=== PATIENT | female | born 1965 | race Caucasian/White ===

== ENCOUNTER 2019-05-08 08:30 | Day surgery (SDC) | payer BC ==
[~2019-05-08] VITALS: Ht 172.7 cm; Wt 93.0 kg
[~2019-05-08 08:30] MED LIST: ALEVE220 MG PO; ALPRAZOLAM ER2 MG PO; BUPROPION XL300 MG PO; LISINOPRIL20 MG PO; MEDROXYPROGESTE10 MG PO; PERCOCET 7.5-31 EACH PO; PRILOSEC20 MG PO; WELLBUTRIN SR100 MG PO
--- NOTE | 2019-05-08 10:43 | NUR ---
05/08/19 Ruben3 Jerri Mathews [id number] ARRIVED TO PACU ON RA. REACTIVE TO VOICE OPENING EYES. LAYING LEFT LATERAL ABDOMEN SOFT. 1043-PATIENT COUGHING AWAKE DENIES PAIN OR NAUSEA. REPORTS "JUST IRRITATING COUGH". SR. RR EVEN. RA 96%
--- NOTE | 2019-05-10 16:41 | OR ---
[facility] [address], [place] [address] Signed DATE OF OPERATION: 05/08/2019 SURGEON: Malka Tyson MD PREOPERATIVE DIAGNOSIS: History of Sharma's esophagus. POSTOPERATIVE DIAGNOSES: 1. Ultra short-segment Sharma's esophagus. 2. Mild chronic inflammation. 3. Poor flap valve. PROCEDURE: Esophagogastroduodenoscopy with biopsy. ANESTHESIA: Intravenous sedation, propofol infusion, Ramona Bateman CRNA INDICATION: Propofol infusional sedation by the anesthesiologist and critical care in the lateral decubitus position. DESCRIPTION OF PROCEDURE: The hypopharynx had been sprayed with Hurricaine spray by the anesthesiologist and critical care. A bite block was placed. An Olympus video upper endoscope was passed in the hypopharynx. The vocal cords appeared normal. Scope was advanced down the esophagus. The distal portion showed minimal inflammatory changes, certainly no sign of neoplasm or stricture. The previously noted islands consistent with Sharma epithelium were nearly closed or coalescent. Scope was advanced to the stomach, which was insufflated with air. There was no sign of bile within the stomach. Rugal folds appeared normal as did the antral motility. The pylorus was normal. Scope was passed through into the duodenum, which was normal. Biopsies were taken of the duodenal mucosa nevertheless to assess for celiac disease. The scope was withdrawn and biopsies then taken of the antrum for both ULISES and pathologic testing. Retroflexed view was undertaken showing a very poor flap valve and an effaced GE junction. Scope was withdrawn to the distal esophagus where multiple biopsies were taken of the esophageal mucosa including areas considered possible for short-segment Sharma's epithelium. There is certainly no stricture or neoplasm. No varices. Scope was withdrawn and a corrugated appearance of the mid esophagus was noted. Biopsies were obtained there. Scope was further withdrawn and ultimately removed. The patient was taken to recovery room in good condition having suffered no complication. Electronically Signed By: MALKA TYSON MD 05/10/19 1641 PATIENT NAME: ISAAC DIAL OPERATIVE REPORT DATE OF : 67 REPORT #: [id number] PHYSICIAN: MALKA TYSON MD PCP: LIZ WOOTEN PA-C REPORT IS CONFIDENTIAL AND NOT TO BE RELEASED WITHOUT AUTHORIZATION [facility] [address], [place] [address] Signed CONCLUDING DIAGNOSIS: 1. Clinical improvement (endoscopic appearance) of probable distal esophageal Sharma's epithelium. If anything, Short-segment Sharma's only. No sign of progression or neoplasm. 2. Poor flap valve. 3. Mild antral gastritis. PLAN: We will recommend continued use of lansoprazole 30 mg daily. We will review her pathology reports and make a plan for surveillance depending on those findings. She will return to see us in approximately 4 to 6 weeks. MD CASSIE Almeida/YARELI /[id number] cc: Liz Wooten PA-C Copies: LIZ WOOTEN PA-C ~ Electronically Signed By: MALKA TYSON MD 05/10/19 1641 PATIENT NAME: ISAAC DIAL OPERATIVE REPORT DATE OF : 67 REPORT #: [id number] PHYSICIAN: MALKA TYSON MD PCP: LIZ WOOTEN PA-C REPORT IS CONFIDENTIAL AND NOT TO BE RELEASED WITHOUT AUTHORIZATION
--- NOTE | 2019-05-12 17:31 | PATH ---
[facility] [address], [place] [address] Signed SPECIMEN(S): A DUODENAL BIOPSY SPECIMEN(S): B ANTRUM/PYLORUS BIOPSY SPECIMEN(S): C LOWER ESOPHAGEAL BIOPSY SPECIMEN(S): D MID ESOPHAGEAL BIOPSY SPECIMEN SOURCE: A. DUODENAL BIOPSY B. ANTRUM/PYLORUS BIOPSY C. LOWER ESOPHAGEAL BIOPSY D. MID ESOPHAGEAL BIOPSY CLINICAL HISTORY: Pre: Sharma's esophagus, reflux. Post: Distal esophagitis. MICROSCOPIC DESCRIPTION: Histologic sections of all submitted blocks are examined by light microscopy. These findings, together with the gross examination, support the pathologic diagnosis. FINAL PATHOLOGIC DIAGNOSIS: A. Duodenum, biopsy: - Duodenal mucosa with no histopathologic abnormality. - Normal villous architecture is present. B. Stomach, antrum/pylorus, biopsy: - Antral type mucosa with mild chronic, inactive gastritis. - No Helicobacter organisms seen on immunohistochemical stain. C. Esophagus, lower, biopsy: - Squamocolumnar junctional mucosa with mild reactive epithelial changes. D. Esophagus, mid, biopsy: - Squamous mucosa with mild reactive epithelial changes. - No dysplasia or malignancy. COMMENT: An immunohistochemical stain (with appropriate controls) for Helicobacter pylori was performed on the antrum/pyloris biopsy and shows no Helicobacter organisms. NAL:cml:C2NR GROSS DESCRIPTION: Four specimens are received in four containers, labeled "KW." A. The specimen, labeled "KW, duodenal biopsy," is received in formalin and consists of a single 0.3 cm palmer-brown fragment. Specimen is entirely submitted PATIENT NAME: ISAAC DIAL PATHOLOGY DATE OF : 67 REPORT #: [id number] PHYSICIAN: FABI NAIR PCP: EVELIN CROCKETT PA-C REPORT IS CONFIDENTIAL AND NOT TO BE RELEASED WITHOUT AUTHORIZATION [facility] [address], [place] [address] Signed in cassette (A1). B. The specimen, labeled "KW, antrum biopsy," is received in formalin and consists of two, 0.2 and 0.3 cm palmer fragments. Specimen is entirely submitted in cassette (B1). C. The specimen, labeled "KW, lower esophageal biopsy," is received in formalin and consists of four, 0.1-0.4 cm palmer-white fragments. Specimen is entirely submitted in cassette (C1). D. The specimen, labeled "KW, mid-esophageal biopsy," is received in formalin and consists of a single 0.2 cm palmer-white fragment. Specimen is entirely submitted in cassette (D1). AM (under the direct supervision of a pathologist) The Gross Description was prepared using a voice recognition system. The report was reviewed for accuracy; however, sound-alike word errors, addition and/or deletions may occur. If there is any question about this report, please contact Client Services. ADDITIONAL NOTES: Immunohistochemical and/or in situ hybridization studies were performed on this case with the appropriate positive controls that react as expected. This test was developed and its performance characteristics determined by [employer]. It has not been cleared or approved by the U.S. Food and Drug Administration. The FDA has determined that such clearance or approval is not necessary. This test is used for clinical purposes. It should not be regarded as investigational or for research. [facility] [facility] is certified under the Clinical Laboratory Improvement Amendments of 1988 (CLIA) as qualified to perform high complexity clinical laboratory testing. PERFORMING LABORATORY: The technical component was performed by [facility], [address] [place] [id number] (Fitness Teacher: Heidy Red MD; CLIA# [id number]). Professional interpretation was performed by [employer], [facility], [address] [address] (CLIA# [id number]). Diagnostician: Meena Garcia MD Pathologist Electronically Signed 05/12/2019 PATIENT NAME: ISAAC DIALISE PATHOLOGY DATE OF : 67 REPORT #: [id number] PHYSICIAN: FABI PATHOLOGY PCP: EVELIN CROCKETT PA-C REPORT IS CONFIDENTIAL AND NOT TO BE RELEASED WITHOUT AUTHORIZATION [facility] [address] [place], [place] [address] Signed Copies: ~ PATIENT NAME: ISAAC DIAL JUSTINE PATHOLOGY DATE OF : 67 REPORT #: [id number] PHYSICIAN: FABI NAIR PCP: EVELIN CROCKETT PA-C REPORT IS CONFIDENTIAL AND NOT TO BE RELEASED WITHOUT AUTHORIZATION
== END 2019-05-08 11:25 | disposition home or self-care (01) ==
LOC: DS 08:30 → OPS 08:30 → DS 11:00 → OPS 11:00
PROVIDERS: Surgery
PROC: 0DB78ZX Excision of Stomach, Pylorus, Via Natural or Artificial Opening Endoscopic, Diagnostic (ICD-10-PCS; 2019-05-08)
PROC: 0DB28ZX Excision of Middle Esophagus, Via Natural or Artificial Opening Endoscopic, Diagnostic (ICD-10-PCS; 2019-05-08)
PROC: 0DB38ZX Excision of Lower Esophagus, Via Natural or Artificial Opening Endoscopic, Diagnostic (ICD-10-PCS; 2019-05-08)
PROC: 0DB98ZX Excision of Duodenum, Via Natural or Artificial Opening Endoscopic, Diagnostic (ICD-10-PCS; principal; 2019-05-08 11:00)
DX: K22.70 Barrett's esophagus without dysplasia (principal); K29.50 Unspecified chronic gastritis without bleeding; K21.9 Gastro-esophageal reflux disease without esophagitis; I10 Essential (primary) hypertension; Z88.5 Allergy status to narcotic agent; Z79.899 Other long term (current) drug therapy; Z87.891 Personal history of nicotine dependence; Z98.890 Other specified postprocedural states
CPT/HCPCS: J0690; J2250; J2704; J7120

== ENCOUNTER 2021-12-23 17:45 | Emergency (ER) | payer OTHER, BC ==
[~2021-12-23] VITALS: Ht 172.7 cm; Wt 98.7 kg
--- OUTSIDE RECORDS SUMMARY | 2021-12-23 17:48 | XMS ---
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 EAlejandro VISIT COUNT (12 MO.) 1 [facility] [address] [facility] TOTAL 2 NOTE: Visits indicate total known visits. ED/C VISIT TRACKING (12 MO.) 12/23/2021 17:[address] [facility] [place] TYPE: Emergency COMPLAINT: - HEAD INJURY 01/02/2021 14:29 [facility] OR [facility] TYPE: Emergency DIAGNOSES: 0. LEFT KNEE PAIN INPATIENT VISIT TRACKING (12 MO.) No inpatient visits to display in this time frame [email or web address]
[2021-12-23] MEDS ORDERED: HYDROCODON-ACE1 EA10 PO (20:21)
[2021-12-23] MEDS ORDERED: SERTRALINE HCL100 MG PO (21:17)
--- NOTE | 2021-12-25 17:09 | EKG ---
[facility] [address] [facility] [place] [address] Signed Normal sinus rhythm Low voltage QRS Borderline ECG When compared with ECG of 14-AUG-2016 11:50, No significant change was found Confirmed by DAVION RODRIGUEZ MD ([id number]) on 12/25/2021 5:09:24 PM Electronically Signed By: DAVION RODRIGUEZ MD 12/25/21 1709 PATIENT NAME: ISAAC DIAL JUSTINE Electrocardiogram DATE OF : 67 PHYSICIAN: DAVION RODRIGUEZ MD REPORT #: [id number] REPORT IS CONFIDENTIAL AND NOT TO BE RELEASED WITHOUT AUTHORIZATION
== END 2021-12-23 20:46 | disposition home or self-care (01) ==
LOC: ED 17:45
DX: S01.01XA Laceration without foreign body of scalp, initial encounter (principal); T14.8XXA Other injury of unspecified body region, initial encounter; I10 Essential (primary) hypertension; Z87.891 Personal history of nicotine dependence; Z88.5 Allergy status to narcotic agent; Z79.899 Other long term (current) drug therapy; V13.4XXA Pedal cycle driver injured in collision with car, pick-up truck or van in traffic accident, initial encounter
CPT/HCPCS: 36415; 70450; 71045; 71260; 72125; 74177; 80053; 83605; 83690; 85025; 90471; 90715; 93005; 93010; 99284-25; A9270; G0480; J1885; J3010; J7030; Q9967